=== PATIENT | female | born 1935 | race Caucasian/White ===

== ENCOUNTER → 2017-02-07 | Outpatient (CLI) | payer OTHER ==
--- NOTE | 2017-02-07 14:34 | REPMRS ---
Patient History The patient states she has not had a clinical breast exam in over a year. Family history of ovarian cancer in sister at age 50 or over and breast cancer in 2 other sisters at age 50 or over. Digital Woman Screen Mammo: February 07, 2017 - Exam #: [id number] Bilateral CC and MLO view(s) were taken. Technologist: Wandy Crowley, Technologist Prior study comparison: May 03, 2015, digital woman screen mammo performed at [facility]. November 26, 2013, digital woman screen mammo performed at [facility] to [facility]. FINDINGS: There are scattered fibroglandular densities. There has been no change in the appearance of the mammogram from the prior studies. There is a mild amount of residual fibroglandular tissue which is fairly symmetric. There is no interval development of dominant mass, architectural distortion, or clustered microcalcification suggestive of malignancy. ASSESSMENT: BI-RADS/ACR category 1 mammogram. Negative. Recommendation Routine screening mammogram in 1 year (for women over age 40). This mammogram was interpreted with the aid of an FDA-approved computer-aided dectection system. Electronically Signed By: Narciso Tyler MD 02/07/17 3651
== END ==
LOC: M WHC 11:20
PROVIDERS: ATTEND Family Medicine
DX: Z12.31 Encounter for screening mammogram for malignant neoplasm of breast (principal)

== ENCOUNTER → 2017-04-11 | Outpatient (CLI) | payer OTHER ==
--- NOTE | 2017-04-11 16:33 | REP ---
LUMBAR SPINE, FIVE VIEWS: HISTORY: Back pain. COMPARISON: 09/28/2012 There is no acute fracture or subluxation. The intervertebral discs are decreased in height. Vacuum phenomenon is present at the L1-2 and L4-5 levels. These findings are consistent with disc degeneration. Osteophytes are present on L1 through 5. There is narrowing of the L4-5 and L5-S1 facet joints. There is scoliosis convex to the right. The bony structure is osteopenic. IMPRESSION: Degenerative change as described above. Signed by Cristhian Ch MD 04/11/2017 04:41 P
== END ==
LOC: M WUC 15:47
PROVIDERS: ATTEND Family Medicine
DX: M54.5 Low back pain (principal)

== ENCOUNTER → 2017-07-01 | Outpatient (REF) | payer OTHER | LOC: M LAB REF 09:45 | PROVIDERS: ATTEND Physician Assistant | DX: N39.0 Urinary tract infection, site not specified (principal) ==

== ENCOUNTER 2017-10-13 13:31 | Emergency (ER) | payer OTHER ==
[2017-10-13] MEDS: TETANUS/DIPHTHERIA TOX ADSORB ADULT 0.5ML SYR/VIAL (90714) IM (14:00)
[2017-10-13] MEDS ORDERED: LIDOCAINE 1% MDV 20ML VIAL As Ordered (15:21)
[2017-10-13] MEDS: LIDOCAINE 1% MDV 20ML VIAL IM (15:30)
== END 2017-10-13 17:49 | disposition home or self-care (01) ==
LOC: M ED 13:31
DX: S01.81XA Laceration without foreign body of other part of head, initial encounter (principal); W00.0XXA Fall on same level due to ice and snow, initial encounter; Y92.098 Other place in other non-institutional residence as the place of occurrence of the external cause; Y93.01 Activity, walking, marching and hiking; Y99.8 Other external cause status; F41.9 Anxiety disorder, unspecified; Z79.899 Other long term (current) drug therapy
CPT/HCPCS: 90714

== ENCOUNTER → 2019-02-13 | Outpatient (CLI) | payer OTHER ==
[~2019-02-13] MED LIST: BACI500O8 TOP; CLON1TAB8; MELO15TA28
--- NOTE | 2019-02-13 15:21 | REP ---
HISTORY: Pain from arthritis. COMPARISON: 03/21/2016 Once again, there is marked medial compartmental narrowing which has increased in severity compared to the prior exam with prominent marginal osteophytosis, subchondral sclerosis, and evidence of subchondral cyst formation. The bones are demineralized. There is no evidence of an acute fracture. Patellofemoral joint space narrowing is also noted, status quo. IMPRESSION: Chronic changes as described above. Electronically Signed by Ramos Jackson DO 02/13/2019 03:29 P
[2019-02-13 16:49] LABS: BASO % 0.1 % (0.0-1.0); EOS # 0.9 10^3/uL (0.0-0.50); EOS % 10.7 % (0.0-3.0); HEMATOCRIT 39.8 % (36.0-47.0); HEMOGLOBIN 12.8 g/dl (12.0-15.5); LYMPH # 1.3 10^3/uL (1.5-4.5); LYMPH % 15.1 % (24.0-44.0); MEAN CORPUSCULAR HEMOGLOBIN 31.2 pg (27.0-33.0); MEAN CORPUSCULAR HGB CONC 32.2 g/dl (32.0-36.5); MEAN CORPUSCULAR VOLUME 97.1 fl (80.0-96.0); MONO # 1.8 10^3/uL (0.0-0.8); MONO % 21.1 % (0.0-5.0); NEUTROPHILS # 4.5 10^3/uL (1.8-7.7); NEUTROPHILS % 52.8 % (36.0-66.0); PLATELET COUNT, AUTOMATED 366 10^3/uL (150-450); WHITE BLOOD COUNT 8.5 10^3/uL (4.0-10.0)
[2019-02-13 17:06] LABS: ALBUMIN 4.1 GM/DL (3.2-5.2); ALT/SGPT 20 U/L (12-78); BILIRUBIN,TOTAL 0.7 MG/DL (0.2-1.0); BLOOD UREA NITROGEN 12 MG/DL (7-18); CALCIUM LEVEL 8.9 MG/DL (8.8-10.2); CARBON DIOXIDE LEVEL 33 MEQ/L (21-32); CHLORIDE LEVEL 106 MEQ/L (98-107); CREATININE FOR GFR 0.76 MG/DL (0.55-1.30); GLOMERULAR FILTRATION RATE > 60.0 (>32); GLUCOSE, FASTING 64 MG/DL (70-100); LDH LACTATE DEHYDROGENASE 211 U/L (84-246); POTASSIUM SERUM 4.5 MEQ/L (3.5-5.1); SODIUM LEVEL 142 MEQ/L (136-145); TOTAL 25(OH) VITAMIN D 27.4 NG/ML (30.0-100.0); TOTAL PROTEIN 6.4 GM/DL (6.4-8.2)
[2019-02-13 17:36] LABS: ERYTHROCYTE SEDIMENTATION RATE 7 mm/hr (0-42)
== END ==
LOC: M WUC 11:22
PROVIDERS: ATTEND Family Medicine
DX: M85.9 Disorder of bone density and structure, unspecified (principal); R53.81 Other malaise; M25.50 Pain in unspecified joint; M17.12 Unilateral primary osteoarthritis, left knee

== ENCOUNTER → 2019-07-17 | Outpatient (CLI) | payer OTHER ==
--- NOTE | 2019-07-17 15:25 | REP ---
RIGHT HIP, TWO VIEWS: Two views of the right hip performed. There is no evidence of acute fracture or dislocation. There is mild joint space narrowing, subchondral sclerosis and spurring at the hip joint. IMPRESSION: Mild degenerative changes. No fracture or dislocation. Electronically Signed by Narciso Tyler MD 07/21/2019 08:54 A
--- NOTE | 2019-07-17 15:42 | REP ---
RIGHT RIB SERIES: Multiple views of the right ribs are performed, five views were obtained. There are nondisplaced fractures of the right lateral 8th through 10th ribs. I see no other evidence of rib fracture or bone lesion. An accompanying view of the chest demonstrates no acute infiltrate, pneumothorax, or pleural effusion. Heart is not enlarged. There is some tortuosity of the thoracic aorta. IMPRESSION: Nondisplaced fractures lateral right 8th through 10th ribs. Electronically Signed by Narciso Tyler MD 07/21/2019 08:55 A
== END ==
LOC: M WUC 14:33
PROVIDERS: ATTEND Physician Assistant
DX: S20.221A Contusion of right back wall of thorax, initial encounter (principal); S70.01XA Contusion of right hip, initial encounter; X58.XXXA Exposure to other specified factors, initial encounter; Y92.9 Unspecified place or not applicable; Y93.9 Activity, unspecified; Y99.9 Unspecified external cause status

== ENCOUNTER → 2020-05-18 | Outpatient (REF) | payer MEDICARE ==
[2020-06-20 11:38] LABS: HEMATOCRIT 38.7 % (36.0-47.0); HEMOGLOBIN 12.6 g/dl (12.0-15.5); MEAN CORPUSCULAR HGB CONC 32.6 g/dl (32.0-36.5); MEAN CORPUSCULAR VOLUME 104.3 fl (80.0-96.0); PLATELET COUNT, AUTOMATED 403 10^3/uL (150-450); RED BLOOD COUNT 3.71 10^6/uL (4.00-5.40); WHITE BLOOD COUNT 6.7 10^3/uL (4.0-10.0)
[2020-07-03 10:53] LABS: ALBUMIN 4.3 GM/DL (3.2-5.2); ALT/SGPT 27 U/L (12-78); BILIRUBIN,TOTAL 1.1 MG/DL (0.2-1.0); BLOOD UREA NITROGEN 22 MG/DL (7-18); CALCIUM LEVEL 9.4 MG/DL (8.8-10.2); CARBON DIOXIDE LEVEL 31 MEQ/L (21-32); CHLORIDE LEVEL 104 MEQ/L (98-107); CREATININE FOR GFR 0.79 MG/DL (0.55-1.30); GLOMERULAR FILTRATION RATE > 60.0 (>32); GLUCOSE, FASTING 73 MG/DL (70-100); POTASSIUM SERUM 4.5 MEQ/L (3.5-5.1); SODIUM LEVEL 138 MEQ/L (136-145); TOTAL 25(OH) VITAMIN D 36.4 NG/ML (30.0-100.0)
== END ==
LOC: M LABWUC 11:09
PROVIDERS: ATTEND Family Medicine
DX: M85.9 Disorder of bone density and structure, unspecified (principal); Z79.899 Other long term (current) drug therapy

== ENCOUNTER → 2022-05-09 | Outpatient (CLI) | payer MEDICARE ==
[2022-05-09 16:44] LABS: HEMATOCRIT 35.3 % (36.0-47.0); HEMOGLOBIN 11.4 g/dl (12.0-15.5); MEAN CORPUSCULAR HEMOGLOBIN 34.1 pg (27.0-33.0); MEAN CORPUSCULAR HGB CONC 32.3 g/dl (32.0-36.5); MEAN CORPUSCULAR VOLUME 105.7 fl (80.0-96.0); PLATELET COUNT, AUTOMATED 358 10^3/uL (150-450); RED BLOOD COUNT 3.34 10^6/uL (4.00-5.40); WHITE BLOOD COUNT 5.8 10^3/uL (4.0-10.0)
[2022-05-09 17:14] LABS: ERYTHROCYTE SEDIMENTATION RATE 8 mm/hr (0-30)
[2022-05-09 18:23] LABS: ALBUMIN 4.1 GM/DL (3.2-5.2); ALT/SGPT 24 U/L (12-78); BILIRUBIN,TOTAL 1.3 MG/DL (0.2-1.0); BLOOD UREA NITROGEN 19 MG/DL (7-18); CALCIUM LEVEL 9.3 MG/DL (8.8-10.2); CARBON DIOXIDE LEVEL 30 MEQ/L (21-32); CHLORIDE LEVEL 103 MEQ/L (98-107); CREATININE FOR GFR 0.73 MG/DL (0.55-1.30); GLOMERULAR FILTRATION RATE > 60.0 (>32); GLUCOSE, FASTING 86 MG/DL (70-100); POTASSIUM SERUM 4.5 MEQ/L (3.5-5.1); SODIUM LEVEL 137 MEQ/L (136-145); TOTAL PROTEIN 6.8 GM/DL (6.4-8.2)
[2022-05-09 18:52] LABS: TOTAL 25(OH) VITAMIN D 20.9 NG/ML (30.0-100.0)
== END ==
LOC: M WUC 13:20
PROVIDERS: ATTEND Family Medicine
DX: M85.9 Disorder of bone density and structure, unspecified (principal); M15.9 Polyosteoarthritis, unspecified; Z79.899 Other long term (current) drug therapy

== ENCOUNTER → 2022-09-18 | Outpatient (CLI) | payer MEDICARE ==
[2022-09-18 16:43] LABS: BASO % 0.2 % (0.0-1.0); EOS # 0.9 10^3/uL (0.0-0.5); EOS % 13.7 % (0.0-3.0); HEMATOCRIT 37.4 % (36.0-47.0); HEMOGLOBIN 11.4 g/dl (12.0-15.5); LYMPH # 1.3 10^3/uL (1.5-5.0); LYMPH % 21.3 % (24.0-44.0); MEAN CORPUSCULAR HEMOGLOBIN 33.4 pg (27.0-33.0); MEAN CORPUSCULAR HGB CONC 30.5 g/dl (32.0-36.5); MEAN CORPUSCULAR VOLUME 109.7 fl (80.0-96.0); MONO # 1.3 10^3/uL (0.0-0.8); MONO % 21.6 % (2.0-8.0); NEUTROPHILS # 2.7 10^3/uL (1.5-8.5); NEUTROPHILS % 42.9 % (36.0-66.0); PLATELET COUNT, AUTOMATED 372 10^3/uL (150-450); RED BLOOD COUNT 3.41 10^6/uL (4.00-5.40); WHITE BLOOD COUNT 6.2 10^3/uL (4.0-10.0)
[2022-09-18 17:12] LABS: ALBUMIN 4.2 G/DL (3.2-5.2); ALKALINE PHOSPHATASE 75 U/L (46-116); ALT/SGPT 16 U/L (7.0-40); AST/SGOT 27 U/L (<34); BILIRUBIN,TOTAL 1.5 MG/DL (0.3-1.2); BLOOD UREA NITROGEN 19 MG/DL (9-23); CALCIUM LEVEL 9.5 MG/DL (8.3-10.6); CARBON DIOXIDE LEVEL 26 MMOL/L (20-31); CHLORIDE LEVEL 104 MMOL/L (98-107); CREATININE FOR GFR 0.74 MG/DL (0.55-1.30); GLOMERULAR FILTRATION RATE > 60.0 (>32); GLUCOSE, FASTING 89 MG/DL (74-106); POTASSIUM SERUM 4.3 MMOL/L (3.5-5.1); SODIUM LEVEL 138 MMOL/L (136-145); TOTAL PROTEIN 6.8 G/DL (5.7-8.2)
[2022-09-18 19:41] LABS: APPEARANCE, URINE MANUAL CLEAR (CLEAR); COLOR, URINE MANUAL YELLOW (YELLOW)
[2022-09-18 19:42] LABS: BILIRUBIN, URINE MANUAL NEGATIVE (NEGATIVE); BLOOD URINE MANUAL NEGATIVE (NEGATIVE); GLUCOSE, URINE (UA) MANUAL NEGATIVE (NEGATIVE); KETONE, URINE MANUAL NEGATIVE (NEGATIVE); LEUKOCYTE ESTERASE, URINE MAN POSITIVE (NEGATIVE); NITRITE, URINE MANUAL NEGATIVE (NEGATIVE); PROTEIN, URINE MANUAL NEGATIVE (NEGATIVE); SPECIFIC GRAVITY,URINE MANUAL 1.015 (1.002-1.035); UROBILINOGEN, URINE MANUAL NORMAL (NORMAL)
[2022-09-18 20:05] LABS: BACTERIA, URINE SMALL AMOUNT; RBC, URINE 0-1 /hpf (0-3); SQUAMOUS EPITHELIAL CELL URINE MOD AMOUNT /hpf (SMALL AMT); TRANSITIONAL EPI CELLS, URINE SMALL AMOUNT /hpf
[2022-09-18 20:06] LABS: HYALINE CAST, URINE NONE SEEN /lpf (0-1)
== END ==
LOC: M WUC 11:04
PROVIDERS: ATTEND Family Medicine
DX: R31.9 Hematuria, unspecified (principal)

== ENCOUNTER → 2022-10-05 | Outpatient (CLI) | payer MEDICARE ==
[~2022-10-05] MED LIST changes: +ISOVUE-370 76% 100ML VIAL As Ordered ONE
== END ==
LOC: M RAD 13:27
PROVIDERS: ATTEND Family Medicine
DX: R31.9 Hematuria, unspecified (principal)
CPT/HCPCS: 74178; Q9967

== ENCOUNTER → 2023-06-03 | Outpatient (CLI) | payer MEDICARE ==
[~2023-06-03] MED LIST changes: -ISOVUE-370 76% 100ML VIAL As Ordered ONE
[2023-06-03 17:56] LABS: HEMATOCRIT 29.9 % (36.0-47.0); HEMOGLOBIN 9.3 g/dl (12.0-15.5); MEAN CORPUSCULAR HEMOGLOBIN 35.8 pg (27.0-33.0); MEAN CORPUSCULAR HGB CONC 31.1 g/dl (32.0-36.5); PLATELET COUNT, AUTOMATED 349 10^3/uL (150-450); WHITE BLOOD COUNT 6.5 10^3/uL (4.0-10.0)
[2023-06-03 18:31] LABS: ALBUMIN 4.1 G/DL (3.2-5.2); ALKALINE PHOSPHATASE 71 U/L (46-116); ALT/SGPT 14 U/L (7.0-40); AST/SGOT 17 U/L (<34); BILIRUBIN,TOTAL 2.2 MG/DL (0.3-1.2); BLOOD UREA NITROGEN 21 MG/DL (9-23); CALCIUM LEVEL 9.1 MG/DL (8.3-10.6); CARBON DIOXIDE LEVEL 31 MMOL/L (20-31); CHLORIDE LEVEL 99 MMOL/L (98-107); CREATININE FOR GFR 0.77 MG/DL (0.55-1.30); GLOMERULAR FILTRATION RATE > 60.0 (>32); GLUCOSE, FASTING 91 MG/DL (74-106); POTASSIUM SERUM 4.2 MMOL/L (3.5-5.1); SODIUM LEVEL 135 MMOL/L (136-145); TOTAL PROTEIN 6.6 G/DL (5.7-8.2)
[2023-06-03 18:35] LABS: TOTAL 25(OH) VITAMIN D 29.5 NG/ML (20.0-100.0)
[2023-06-03 20:06] LABS: ATYPICAL LYMPH 4 % (0-5); BASOPHILS 1 % (0-1); EOSINOPHILS 8 % (0-3); LYMPHOCYTES 31 % (16-44); MONOCYTES 14 % (0-5); NEUTROPHILS 42 % (28-66)
[2023-06-03 20:07] LABS: PLATELET ESTIMATE NORMAL (NORMAL)
== END ==
LOC: M WUC 14:22
PROVIDERS: ATTEND Family Medicine
DX: M85.9 Disorder of bone density and structure, unspecified (principal); R60.9 Edema, unspecified; Z79.899 Other long term (current) drug therapy

== ENCOUNTER → 2023-06-17 | Outpatient (CLI) | payer MEDICARE ==
[2023-06-17 16:46] LABS: HEMOGLOBIN 9.5 g/dl (12.0-15.5); MEAN CORPUSCULAR HEMOGLOBIN 37.1 pg (27.0-33.0); MEAN CORPUSCULAR HGB CONC 32.8 g/dl (32.0-36.5); MEAN CORPUSCULAR VOLUME 113.3 fl (80.0-96.0); PLATELET COUNT, AUTOMATED 336 10^3/uL (150-450); RED BLOOD COUNT 2.56 10^6/uL (4.00-5.40); WHITE BLOOD COUNT 7.5 10^3/uL (4.0-10.0)
[2023-06-17 17:19] LABS: BLOOD UREA NITROGEN 18 MG/DL (9-23); CALCIUM LEVEL 8.7 MG/DL (8.3-10.6); CARBON DIOXIDE LEVEL 30 MMOL/L (20-31); CHLORIDE LEVEL 95 MMOL/L (98-107); CREATININE FOR GFR 0.79 MG/DL (0.55-1.30); GLOMERULAR FILTRATION RATE > 60.0 (>32); GLUCOSE, FASTING 97 MG/DL (74-106); IRON (FE) 111 UG/DL (50-170); PERCENT SATURATION 33.6 % (13.2-45.0); POTASSIUM SERUM 4.4 MMOL/L (3.5-5.1); SODIUM LEVEL 131 MMOL/L (136-145); TOTAL IRON BINDING CAPACITY 330 UG/DL (250-425)
[2023-06-17 17:21] LABS: FERRITIN 95.2 NG/ML (7.3-270.7)
[2023-06-17 17:22] LABS: FOLATE > 24.00 NG/ML (>5.4); VITAMIN B12 LEVEL 937 PG/ML (211-911)
[2023-06-17 17:28] LABS: APPEARANCE, URINE HAZY (CLEAR); BACTERIA, URINE AUTO NEGATIVE (NEGATIVE); BILIRUBIN, URINE AUTO NEGATIVE (NEGATIVE); BLOOD, URINE BLOOD NEGATIVE (NEGATIVE); COLOR, URINE AMBER (YELLOW); GLUCOSE, URINE (UA) AUTO NEGATIVE (NEGATIVE); KETONE, URINE AUTO NEGATIVE (NEGATIVE); LEUKOCYTE ESTERASE, URINE AUTO TRACE (NEGATIVE); MUCUS, URINE SMALL (NEGATIVE); NITRITE, URINE AUTO NEGATIVE (NEGATIVE); PROTEIN, URINE AUTO NEGATIVE (NEGATIVE); RBC, URINE AUTO 2 /HPF (0-3); SPECIFIC GRAVITY URINE AUTO 1.011 (1.002-1.035); SQUAMOUS EPITHELIAL CELL UR AU 2 /HPF (0-6); WBC, URINE AUTO 7 /HPF (0-3)
[2023-06-17 18:16] LABS: ATYPICAL LYMPH 2 % (0-5); EOSINOPHILS 4 % (0-3); LYMPHOCYTES 19 % (16-44); MONOCYTES 23 % (0-5); NEUTROPHILS 52 % (28-66); PLATELET ESTIMATE NORMAL (NORMAL)
[2023-06-17 18:18] LABS: POLYCHROMASIA 1+
== END ==
LOC: M WUC 14:01
PROVIDERS: ATTEND Family Medicine
DX: D64.9 Anemia, unspecified (principal); R60.9 Edema, unspecified; R31.9 Hematuria, unspecified